=== PATIENT | male | born 1965 | race African-American/Black ===

== ENCOUNTER 2023-11-01 11:01 | Observation (INO) ==
[2023-11-01] MEDS: SODIUM CHLORIDE 0.9% 500 ML IV STA (11:16)
[2023-11-01] MEDS: NITROGLYCERIN SL 0.4 MG/TAB TAB SL STA (11:16)
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
[2023-11-01 11:42] LABS: Basophils # (auto) 0.01 K/uL (0.00-0.20); Basophils % (auto) 0.2 %; Eosinophils # (auto) 0.01 K/uL (0.00-0.50); Eosinophils % (auto) 0.2 %; Hematocrit (blood only) 43.2 % (42.0-52.0); Hemoglobin 14.6 g/dl (14.0-18.0); Immature Granulocytes # (auto) 0.02 K/uL (0.01-0.20); Immature Granulocytes % (auto) 0.4 %; Lymphocytes # (auto) 1.89 K/uL (1.20-3.40); Lymphocytes % (auto) 38.4 %; Mean Corpuscular Hemoglobin 29.7 pg (25.0-34.0); Mean Corpuscular Hgb Conc 33.8 g/dL (32.0-36.0); Mean Corpuscular Volume 87.8 fL (80.0-100.0); Mean Platelet Volume 10.1 fL (9.4-12.4); Monocytes # (auto) 0.32 K/uL (0.11-0.59); Monocytes % (auto) 6.5 %; Neutrophils # (auto) 2.67 K/uL (1.40-6.50); Neutrophils % (auto) 54.3 %; Platelet Count 217 K/uL (130-400); RDW Coefficient of Variation 11.6 % (11.5-14.5); RDW Standard Deviation 37.2 fL (36.4-46.3); Red Blood Count 4.92 M/uL (4.70-6.10); White Blood Count 4.92 K/ul (4.8-10.8)
[2023-11-01 12:01] LABS: Albumin Globulin Ratio 1.3 (0.9-2); Bilirubin,Total 0.4 mg/dl (0.2-1.0); Calcium 9.6 mg/dl (8.6-10.3); Creatinine Clr Calc Pharmacy 92.1 ml/min; Est GFR (African American) 114.3 ml/min; Est GFR (Non-African American) 98.6 ml/min; Globulin 3.2 gm/dl (2.5-4.0); Potassium 3.7 mmol/L (3.5-5.1); Prothrombin Time 11.1 Seconds (9.0-12.0); Total Protein 7.2 gm/dl (6.0-8.3)
[2023-11-01 12:05] LABS: Troponin I High Sensitivity 9.6 pg/ml (0-20)
[2023-11-01] MEDS: OPTIRAY 320 125ml IV ONE (13:02)
--- NOTE | 2023-11-01 13:29 | CT Scan Report ---
CT angio chest dissec wo/w con CLINICAL HISTORY: cp, HTN TECHNIQUE: Multidetector row helical CT of the chest was performed before and after injection of IV c ontrast. Coronal, sagittal, and MIP reformations were obtained. Automated dose lowering techniques an d/or adjustment according to patient size were utilized for this exam. CT DOSE: 458.9 mGy.cm Comparison: Comparison is made to chest radiograph 11/01/2023 FINDINGS: Lungs and pleura: Minimal atelectatic changes are seen. Bronchial wall thickening is seen. Heart and pericardium: Heart size is normal. No pericardial effusion. Vessels: No aortic dissection or intramural hematoma is seen. Mild atherosclerotic disease is seen in the coronary arteries. Mediastinum and pat: Unremarkable. Chest wall and lower neck: Small thyroid nodules are noted which do not require follow-up by ACR ruth rondon. Abdomen: Unremarkable. Bones: Degenerative changes in the thoracic spine. IMPRESSION: No acute abnormality and in particular no evidence of acute aortic injury. Mild bronchial wall thicke barak may reflect infectious/inflammatory airways disease. ACT 112: Negative or not required by law. Electronically signed by: Felipe Garcia M.D. 11/01/2023 1:28 PM
--- NOTE | 2023-11-01 16:22 | Electrocardiogram Report ---
Test Reason : Blood Pressure : / mmHG Vent. Rate : 080 BPM Atrial Rate : 080 BPM P-R Int : 148 ms QRS Dur : 086 ms QT Int : 336 ms P-R-T Axes : 058 058 065 degrees QTc Int : 387 ms Normal sinus rhythm Minimal voltage criteria for LVH, may be normal variant Borderline ECG No previous ECGs available Confirmed by Nirmal Gentile ([id number]) on 11/01/2023 4:22:32 PM Referred By: [facility] Confirmed By:Nirmal Gentile
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
[2023-11-01] MEDS: lisinopril 10 MG TAB PO STA (17:39)
[2023-11-01] MEDS: AZITHROMYCIN 250 MG TAB PO STA (17:39)
[2023-11-01 18:06] LABS: Adenovirus PCR Not Detected (NotDetected); Bordetella parapertussis PCR Not Detected (NotDetected); Bordetella pertussis PCR Not Detected (NotDetected); Chlamydia pneumoniae PCR Not Detected (NotDetected); Coronavirus 229E PCR Not Detected (NotDetected); Coronavirus CoV-2 (COVID19)PCR Not Detected (NotDetected); Coronavirus HKU1 PCR Not Detected (NotDetected); Coronavirus NL63 PCR Not Detected (NotDetected); Coronavirus OC43PCR Not Detected (NotDetected); Human Metapneumovirus PCR Not Detected (NotDetected); Influenza A PCR Not Detected (NotDetected); Influenza B PCR Not Detected (NotDetected); Mycoplasma pneumoniae PCR Not Detected (NotDetected); Parainfluenza Virus 1 PCR Not Detected (NotDetected); Parainfluenza Virus 2 PCR Not Detected (NotDetected); Parainfluenza Virus 3 PCR Not Detected (NotDetected); Parainfluenza Virus 4 PCR Not Detected (NotDetected); Respiratory Syncytial VirusPCR Not Detected (NotDetected); Rhinovirus/Enterovirus PCR Not Detected (NotDetected)
[2023-11-01] MEDS ORDERED: ALUMINUM/MAGNESIUM SUSP 30 ML UDC PO PRN (21:09)
[2023-11-01] MEDS ORDERED: MAGNESIUM HYDROXIDE SUSP 30 ML UDC PO PRN (21:09)
[2023-11-01] MEDS ORDERED: IBUPROFEN 600 MG TAB PO PRN (21:09)
[2023-11-01] MEDS ORDERED: ONDANSETRON INJ 2 MG/ML 2 ML VIAL IV PRN (21:09)
[2023-11-01] MEDS ORDERED: ACETAMINOPHEN 325 MG TAB PO PRN (21:09)
[2023-11-01] MEDS: carBAMazepine 200 MG TABLET PO SCH (23:15)
[2023-11-01] MEDS: FAMOTIDINE 20 MG TAB PO SCH (23:15)
[2023-11-02] MEDS: lisinopril 10 MG TAB PO SCH (08:47)
[2023-11-02 09:19] LABS: Estimated Average Glucose 131 mg/dl; Hemoglobin A1C 6.2 % (4.5-5.6)
[2023-11-02 09:41] LABS: Calcium 8.8 mg/dl (8.6-10.3); Chol HDL Ratio 3.1 (0-5); Creatinine Clr Calc Pharmacy 78.4 ml/min; Est GFR (African American) 110.8 ml/min; Est GFR (Non-African American) 95.6 ml/min; Magnesium 1.2 mg/dl (1.7-2.4); Potassium 4.3 mmol/L (3.5-5.1)
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
--- NOTE | 2023-11-02 11:49 | Hospitalist Progress Note ---
Date of Service November 02, 2023 Assessment & Plan (1) Hyperglycemia: (2) Atypical chest pain: (3) Musculoskeletal chest pain: (4) Peripheral neuropathy: (5) Hypertension: (6) Personality disorder in adult: (7) Acute bronchitis: Plan Patient is a 58 y M from [facility] presents with atypical chest pain that is reproducible. However some of his history may be consistent with some angina. Also has imaging that is a potential consistent with some bronchitis. Admitted to telemetry unit CT chest angio - No acute abnormality and in particular no evidence of acute aortic injury. Mild bronchial wall thickening may reflect infectious/inflammatory airways disease. Troponins x3 negative ECG nonischemic Started on lisinopril on admission - this AM w/ asymptomatic hypotension Cardiology consulted - plan for stress echo, lisinopril on hold Hypomagnesemia - replete and monitor Bronchitis Started on empiric Zithromax for possible bronchitis Guaifenesin procal- pending Current A1c 6.2% c/w prediabetes, will need outpt follow up Continue Tegretol for his peripheral neuropathy Motrin as needed for some of his musculoskeletal/costochondritis type pain Admission and Anticipated Discharge Date Admission Date: November 01, 2023 Subjective Pt seen in follow up of chest pain (atypical), and poss. bronchitis Pt just returned from his stress test laying in bed in NAD, covering his head with sheets/ blankets Says he has chest pain, renetta. when laying on his left side, pain is also reproducible on palpation He is on RA, and appears to breath comfortably, he reports he feels "wheezy" Review of Systems Review of Systems: All systems reviewed & are unremarkable except as noted in Subjective Physical Exam Physical Exam: Constitutional: WD/WN M in NAD HEENT: Mucous membranes moist. Sclera clear Neck: Soft, no adenopathy Lungs: Clear to auscultation, decreased, no wheezes rales or rhonchi CV: S1-S2, regular Abdomen: Soft, nontender, nondistended Extremities: No significant edema Musculoskeletal: Reproducible chest pain to palpation over the costochondral junction in the lower sternum. Neuro: awake, alert, speech fluent, no facial asymmetry, moves extremities Results & Data Results & Data Vital Signs (Past 12 Hours) Vital Signs Temp Pulse Pulse Resp BP Pulse Ox O2 Del Method 11/02/23 11:14 37.3 C 79 18 96/60 L 98 Room Air 11/02/23 08:00 Room Air 11/02/23 07:53 73 11/02/23 07:51 36.4 C L 71 18 90/56 L 98 Room Air 11/02/23 03:12 73 16 91/49 L 97 Room Air 11/02/23 02:20 79 Laboratory Results 11/02/23 11/02/23 11/01/23 Range/Units 08:51 00:12 Unknown PT (9.0-12.0) Seconds INR (0.9-1.1) Sodium 140 (136-145) mmol/L Potassium 4.3 (3.5-5.1) mmol/L Chloride 103 (98-107) mmol/L Carbon Dioxide 32 (21-32) mmol/L Anion Gap 5 (3-11) BUN 10 (6-23) mg/dl Creatinine 0.83 (0.6-1.4) mg/dl Est Cr Clr Drug Dosing 78.4 ml/min Est GFR ( Amer) 110.8 ml/min Est GFR (Non-Af Amer) 95.6 ml/min BUN/Creatinine Ratio 12.0 (10-20) Glucose 91 (70-99(Fasting)) mg/dl Estimat Average Glucose 131 mg/dl Hemoglobin A1c 6.2 H (4.5-5.6) % Calcium 8.8 (8.6-10.3) mg/dl Magnesium 1.2 L (1.7-2.4) mg/dl Total Bilirubin (0.2-1.0) mg/dl AST (13-39) U/L ALT (7-52) U/L Alkaline Phosphatase (34-104) U/L Troponin I High Sens 8.7 11.6 (0-20) pg/ml Total Protein (6.0-8.3) gm/dl Albumin (3.4-5.0) gm/dl Globulin (2.5-4.0) gm/dl Albumin/Globulin Ratio (0.9-2) Triglycerides 75 (0-150) mg/dl Cholesterol 188 (0-200) mg/dl LDL Cholesterol, Calc 113 mg/dl VLDL Cholesterol, Calc 15 (0-30) mg/dl HDL Cholesterol 60 mg/dl Cholesterol/HDL Ratio 3.1 (0-5) Lipase (11-82) U/L TSH (0.300-4.500) uIu/ml Nasal Screen MRSA (PCR) Negative (Negative) Carbamazepine Adenovirus (PCR) (NotDetected) B. pertussis DNA (PCR) (NotDetected) B.parapertussis DNA PCR (NotDetected) C. pneumoniae DNA (PCR) (NotDetected) Coronavirus OC43 (PCR) (NotDetected) Coronavirus HKU1 (PCR) (NotDetected) Coronavirus 229E (PCR) (NotDetected) SARS-CoV-2 (PCR) (NotDetected) Coronavirus NL63 (PCR) (NotDetected) Human Metapneumovir PCR (NotDetected) Influenza Type A (PCR) (NotDetected) Influenza Type B (PCR) (NotDetected) M. pneumoniae (PCR) (NotDetected) Parainfluenza 1 (PCR) (NotDetected) Parainfluenza 2 (PCR) (NotDetected) Parainfluenza 3 (PCR) (NotDetected) Parainfluenza 4 (PCR) (NotDetected) RSV (PCR) (NotDetected) Entero/Rhino (PCR) (NotDetected) 11/01/23 11/01/23 11/01/23 Range/Units 21:26 16:53 11:12 PT 11.1 (9.0-12.0) Seconds INR 1.0 (0.9-1.1) Sodium 139 (136-145) mmol/L Potassium 3.7 (3.5-5.1) mmol/L Chloride 101 (98-107) mmol/L Carbon Dioxide 31 (21-32) mmol/L Anion Gap 7 (3-11) BUN 10 (6-23) mg/dl Creatinine 0.77 (0.6-1.4) mg/dl Est Cr Clr Drug Dosing 92.1 ml/min Est GFR ( Amer) 114.3 ml/min Est GFR (Non-Af Amer) 98.6 ml/min BUN/Creatinine Ratio 13.0 (10-20) Glucose 133 H (70-99(Fasting)) mg/dl Estimat Average Glucose mg/dl Hemoglobin A1c (4.5-5.6) % Calcium 9.6 (8.6-10.3) mg/dl Magnesium (1.7-2.4) mg/dl Total Bilirubin 0.4 (0.2-1.0) mg/dl AST 24 (13-39) U/L ALT 22 (7-52) U/L Alkaline Phosphatase 56 (34-104) U/L Troponin I High Sens 9.6 (0-20) pg/ml Total Protein 7.2 (6.0-8.3) gm/dl Albumin 4.0 (3.4-5.0) gm/dl Globulin 3.2 (2.5-4.0) gm/dl Albumin/Globulin Ratio 1.3 (0.9-2) Triglycerides (0-150) mg/dl Cholesterol (0-200) mg/dl LDL Cholesterol, Calc mg/dl VLDL Cholesterol, Calc (0-30) mg/dl HDL Cholesterol mg/dl Cholesterol/HDL Ratio (0-5) Lipase 7 L (11-82) U/L TSH 1.413 (0.300-4.500) uIu/ml Nasal Screen MRSA (PCR) (Negative) Carbamazepine Pending Adenovirus (PCR) Not Detected (NotDetected) B. pertussis DNA (PCR) Not Detected (NotDetected) B.parapertussis DNA PCR Not Detected (NotDetected) C. pneumoniae DNA (PCR) Not Detected (NotDetected) Coronavirus OC43 (PCR) Not Detected (NotDetected) Coronavirus HKU1 (PCR) Not Detected (NotDetected) Coronavirus 229E (PCR) Not Detected (NotDetected) SARS-CoV-2 (PCR) Not Detected (NotDetected) Coronavirus NL63 (PCR) Not Detected (NotDetected) Human Metapneumovir PCR Not Detected (NotDetected) Influenza Type A (PCR) Not Detected (NotDetected) Influenza Type B (PCR) Not Detected (NotDetected) M. pneumoniae (PCR) Not Detected (NotDetected) Parainfluenza 1 (PCR) Not Detected (NotDetected) Parainfluenza 2 (PCR) Not Detected (NotDetected) Parainfluenza 3 (PCR) Not Detected (NotDetected) Parainfluenza 4 (PCR) Not Detected (NotDetected) RSV (PCR) Not Detected (NotDetected) Entero/Rhino (PCR) Not Detected (NotDetected) Medications Administered Current Inpatient Medications Acetaminophen (Acetaminophen 325 Mg Tab) 650 mg PO Q4H PRN PRN Reason: Pain or Fever Stop: 12/01/23 21:08 Al Hydrox/Mg Hydrox/Simethicone (Aluminum/Magnesium Susp 30 Ml Udc) 15 ml PO Q4H PRN PRN Reason: Dyspepsia Stop: 12/01/23 21:08 Azithromycin (Azithromycin 250 Mg Tab) 500 mg PO Q24H [facility] Stop: 11/07/23 17:31 Carbamazepine (Carbamazepine 200 Mg Tablet) 400 mg PO HS [facility] Stop: 12/01/23 22:59 Last Admin: 11/01/23 23:15 Dose: Not Given Famotidine (Famotidine 20 Mg Tab) 20 mg PO BID [facility] Stop: 12/01/23 21:08 Last Admin: 11/02/23 08:47 Dose: 20 mg Guaifenesin (Guaifenesin 600 Mg Tabcr) 600 mg PO Q12 [facility] Stop: 12/02/23 11:59 Ibuprofen (Ibuprofen 600 Mg Tab) 600 mg PO Q6 PRN PRN Reason: Pain Stop: 12/01/23 21:08 Lisinopril (Lisinopril 10 Mg Tab) 10 mg PO QAM [facility] Stop: 12/02/23 08:59 Last Admin: 11/02/23 08:47 Dose: 10 mg Magnesium Hydroxide (Magnesium Hydroxide Susp 30 Ml Udc) 30 ml PO Q12H PRN PRN Reason: Constipation Stop: 12/01/23 21:08 Ondansetron HCl (Ondansetron Inj 2 Mg/Ml 2 Ml Vial) 4 mg IV Q6H PRN PRN Reason: Nausea Stop: 12/01/23 21:08 (4) Peripheral neuropathy Peripheral neuropathy type: polyneuropathy, unspecified Qualified Code(s): G62.9 - Polyneuropathy, unspecified (5) Hypertension Hypertension type: unspecified Qualified Code(s): I10 - Essential (primary) hypertension (7) Acute bronchitis Bronchitis organism: unspecified organism Qualified Code(s): J20.9 - Acute bronchitis, unspecified
[2023-11-02] MEDS: ATROPINE SULFATE 0.1 MG/ML 10ML SYR IV ONE (13:11)
[2023-11-02] MEDS: METOPROLOL TARTRATE 1 MG/ML VIAL IV ONE (13:11)
[2023-11-02] MEDS: DOBUTamine HCL 12.5 MG/ML 20 ML VIAL IV ONE (13:11)
[2023-11-02] MEDS: NITROGLYCERIN SL 0.4 MG/TAB TAB ONE (13:12)
[2023-11-02] MEDS: guaiFENesin 600 MG TABCR PO SCH (13:24)
[2023-11-02] MEDS: MAGNESIUM SULFATE / D5W 1 GM/100 ML BAG IV ONE (15:45)
[2023-11-02] MEDS: SODIUM CHLORIDE 0.9% 1,000 ML IV SCH (15:45)
[2023-11-02] MEDS: MAGNESIUM OXIDE 400 MG TAB PO SCH (16:37)
[2023-11-02] MEDS: AZITHROMYCIN 250 MG TAB PO SCH (16:37)
[2023-11-03 07:21] LABS: Hematocrit (blood only) 40.9 % (42.0-52.0); Hemoglobin 13.9 g/dl (14.0-18.0); Mean Corpuscular Volume 88.1 fL (80.0-100.0); Mean Platelet Volume 9.9 fL (9.4-12.4); Platelet Count 216 K/uL (130-400); RDW Coefficient of Variation 11.4 % (11.5-14.5); RDW Standard Deviation 36.3 fL (36.4-46.3); Red Blood Count 4.64 M/uL (4.70-6.10); White Blood Count 5.41 K/ul (4.8-10.8)
[2023-11-03 07:48] LABS: Calcium 8.3 mg/dl (8.6-10.3); Magnesium 1.6 mg/dl (1.7-2.4); Potassium 4.2 mmol/L (3.5-5.1)
[2023-11-03 07:53] LABS: BUN Creatinine Ratio 18.2 (10-20); Est GFR (African American) 114.3 ml/min; Est GFR (Non-African American) 98.6 ml/min
[2023-11-03] MEDS: MAGNESIUM SULFATE / D5W 1 GM/100 ML BAG IV ONE (10:18)
[2023-11-03] MEDS: ACETAMINOPHEN 1,000 MG/100 ML VIAL IV STA (10:36)
--- NOTE | 2023-11-03 10:51 | XRay Report ---
SINGLE VIEW CHEST CLINICAL HISTORY: Atypical chest pain FINDINGS: 2 AP, portable, upright chest radiographs are compared to chest x-ray and chest CT dated . The cardiomediastinal silhouette is unremarkable. Emphysema and chronic interstitial thicken ing is similar to previous. No airspace consolidation or large pleural effusion is identified. No pne umothorax is seen. There are chronic/healed left-sided rib fractures. Degenerative change is noted in the shoulders and spine. Tiny radiodense foreign bodies are again seen in the left lower chest wall. IMPRESSION: Emphysematous change with no active disease in the chest. ACT 112: Negative or not required by law. Electronically signed by: Cisco Graf M.D. 11/03/2023 10:50 AM
[2023-11-03] MEDS: KETOROLAC TROMETHAMINE 15 MG/ML VIAL IV ONE (11:27)
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
[2023-11-03] MEDS: FAMOTIDINE 20MG IV PUSH 20 MG/5 ML SYR IV STA (12:52)
--- NOTE | 2023-11-03 15:35 | Electrocardiogram Report ---
Test Reason : Blood Pressure : / mmHG Vent. Rate : 084 BPM Atrial Rate : 084 BPM P-R Int : 156 ms QRS Dur : 090 ms QT Int : 342 ms P-R-T Axes : 068 063 066 degrees QTc Int : 404 ms Normal sinus rhythm Voltage criteria for left ventricular hypertrophy Abnormal ECG When compared with ECG of 01-NOV-2023 11:07, No significant change was found Confirmed by Nirmal Gentile ([id number]) on 11/03/2023 3:35:25 PM Referred By: [facility] Confirmed By:Nirmal Gentile
== END 2023-11-03 15:09 ==
LOC: 2S 11:01 → ED 11:01 → SUATTDRO 16:32 → 2S 21:25